=== PATIENT | male | born 1980 | race Caucasian/White ===

== ENCOUNTER 2019-02-04 11:59 | Emergency (ER) | payer BC ==
--- NOTE | 2019-02-04 12:22 | EDM.PDOC ---
ED HPI GENERAL MEDICAL PROBLEM - General Chief Complaint: Back Pain or Injury Stated Complaint: HURT BACK Time Seen by Provider: 02/04/19 12:14 - History of Present Illness INITIAL COMMENTS - FREE TEXT/NARRATIVE: HISTORY AND PHYSICAL: History of present illness: Patient is a 39-year-old white male presents with low back pain he has chronic intermittent low back pain he has been seen by a chiropractor private medical doctor. He has no incontinence or retention of bowel or bladder he denies any trauma denies numbness or weakness Review of systems: As per history of present illness and below otherwise all systems reviewed and negative. Past medical history: As per history of present illness and as reviewed below otherwise noncontributory. Surgical history: As per history of present illness and as reviewed below otherwise noncontributory. Social history: No reported history of drug or alcohol abuse. Family history: As per history of present illness and as reviewed below otherwise noncontributory. Physical exam: HEENT: Atraumatic, normocephalic, pupils reactive, negative for conjunctival pallor or scleral icterus, mucous membranes moist, throat clear, neck supple, nontender, trachea midline. Lungs: Clear to auscultation, breath sounds equal bilaterally, chest nontender. Heart: S1S2, regular, negative for clicks, rubs, or JVD. Abdomen: Soft, nondistended, nontender. Negative for masses or hepatosplenomegaly. Negative for costovertebral tenderness. Pelvis: Stable nontender. Genitourinary: Deferred. Rectal: Deferred. Extremities: Atraumatic, negative for cords or calf pain. Neurovascular unremarkable. Neuro: Awake, alert, oriented. Cranial nerves II through XII unremarkable. Cerebellum unremarkable. Motor and sensory unremarkable throughout. Exam nonfocal. Back: Patient has mild paravertebral tenderness at the level lumbar spinal vertebral body or point tenderness patient able stand on his toes back on his heels deep tendon reflexes motor and sensory are normal Diagnostics: X-ray lumbosacral spine Therapeutics: Toradol 60 mg IM hydrocodone 10 mg by mouth Impression: #1 chronic intermittent low back pain with acute exacerbation Definitive disposition and diagnosis as appropriate pending reevaluation and review of above. - Related Data Allergies Allergy/AdvReac Type Severity Reaction Status Date / Time No Known Allergies Allergy Verified 02/04/19 12:12 Home Meds: Home Meds Losartan [Cozaar] 100 mg PO DAILY 02/04/19 [History] Vilazodone Hydrochloride [Viibryd] 20 mg PO DAILY 02/04/19 [History] Past Medical History Genitourinary History: Reports: Renal Calculus - Infectious Disease History Infectious Disease History: Reports: Chicken Pox - Past Surgical History Male Surgical History: Reports: Lithotripsy ([facility]) Social & Family History - Family History Family Medical History: Noncontributory - Caffeine Use Caffeine Use: Reports: Soda Caffeine Use Comment: 2 drinks/day ED ROS GENERAL - Review of Systems Review Of Systems: ROS reveals no pertinent complaints other than HPI. ED EXAM, GI/ABD - Physical Exam Exam: See Below (See dictation) Departure - Departure Time of Disposition: 12:21 Disposition: Home, Self-Care 01 Condition: Good Clinical Impression: Low back pain - Discharge Information Referrals: Monica Goodwin NP [Primary Care Provider] - Additional Instructions: The following information is given to patients seen in the emergency department who are being discharged to home. This information is to outline your options for follow-up care. We provide all patients seen in our emergency department with a follow-up referral. The need for follow-up, as well as the timing and circumstances, are variable depending upon the specifics of your emergency department visit. If you don't have a primary care physician on staff, we will provide you with a referral. We always advise you to contact your personal physician following an emergency department visit to inform them of the circumstance of the visit and for follow-up with them and/or the need for any referrals to a consulting specialist. The emergency department will also refer you to a specialist when appropriate. This referral assures that you have the opportunity for followup care with a specialist. All of these measure are taken in an effort to provide you with optimal care, which includes your followup. Under all circumstances we always encourage you to contact your private physician who remains a resource for coordinating your care. When calling for followup care, please make the office aware that this follow-up is from your recent emergency room visit. If for any reason you are refused follow-up, please contact the [facility] emergency department at and asked to speak to the emergency department charge nurse. Ultram Flexeril Medrol as prescribed follow-up private medical doctor as discussed Motrin as directed return as needed as discussed
[2019-02-04] MEDS ORDERED: Ketorolac 60 MG/2 ML SDV IM ONE (12:23)
[2019-02-04] MEDS ORDERED: Acetaminophen/HYDROcodone 325-10 MG Tab PO ONE (12:24)
--- NOTE | 2019-02-04 13:54 | CR ---
INDICATION: Back pain for 1 week. TECHNIQUE: Three views of the lumbar spine. COMPARISON: None. FINDINGS: There is degenerative disc disease at L1-2, L3-4, and less so at L5. Spurring and anterior wedging at L1. Minimal spurring at L2 and L3. There is a triangular-shaped calcification along the anterosuperior corner of the L4 vertebral body. 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 If there has been recent trauma, a fracture to the anterosuperior corner of the L4 vertebral body could not be excluded. Clinical correlation recommended. MRI may be helpful for further characterization only if clinically indicated. The sacroiliac joints are unremarkable. IMPRESSION: 1. Degenerative disc disease at L1, L3, and L5. This is somewhat unusual for a patient of this age. 2. Wedging in spurring of L1 vertebral body. Slight spurring of the L2 and L3 vertebral bodies. 3. 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 Comparison with any previous plain radiographs would be helpful. Clinical correlation and MRI may be helpful for further characterization. Dictated by Rome Hussein MD @ Feb 04 2019 1:49PM Signed by Dr. Rome Hussein @ Feb 04 2019 1:52PM
[2019-02-04 14:12] VITALS: BP 149/95
== END 2019-02-04 14:13 | disposition home or self-care (01) ==
LOC: MW.ED 11:59
DX: M54.5 Low back pain (principal); Z79.899 Other long term (current) drug therapy
CPT/HCPCS: 72100; 96372; 99283; A9270; J1885